=== PATIENT | female | born 1935 | race Caucasian/White ===

== ENCOUNTER → 2016-08-29 | Outpatient (CLI) | payer MEDICARE, OTHER ==
[~2016-08-29] MED LIST: CALTRATE-600 W600 MG PO; MAGNESIUM W/ZINC PO; OMEGA-3 DPS1000 MG PO; POTASSIUM99 M2 PO; PRAVACHOL20 MG PO; TEARS NATURAL D15 ML OU; TYLENOL DPS325 MG PO; VITAMIN D31000 UNIT PO; ZESTORETIC 20/11 TAB PO
== END | disposition home or self-care (01) ==
LOC: RAD.S 12:16
DX: R93.8 Abnormal findings on diagnostic imaging of other specified body structures (principal)

== ENCOUNTER → 2016-09-25 | Outpatient (CLI) | payer MEDICARE, OTHER | END | disposition home or self-care (01) | LOC: RAD.S 09:20 | DX: Z12.31 Encounter for screening mammogram for malignant neoplasm of breast (principal); N63 Unspecified lump in breast; Z90.12 Acquired absence of left breast and nipple ==